=== PATIENT | male | born 1940 | race Hispanic/Latino ===

== ENCOUNTER 2018-11-03 11:36 | Emergency (ER) | payer OTHER ==
[2018-11-03 12:27] LABS: APPEARANCE,URINE TURBID (CLEAR); BILIRUBIN,URINE NEGATIVE (NEGATIVE); GLUCOSE, URINE (UA) 100 mg/dL (NEGATIVE); KETONES,URINE NEGATIVE (NEGATIVE); LEUKOCYTE ESTERASE ,URINE TRACE (NEGATIVE); NITRATE,URINE NEGATIVE (NEGATIVE); OCCULT BLOOD,URINE LARGE (NEGATIVE); PH,URINE 6.5 (5.0-8.0); PROTEIN,URINE >=300 mg/dL (NEGATIVE); UROBILINOGEN,URINE 0.2 mg/dL (0.2-1.0)
[2018-11-03 12:35] LABS: COLOR,URINE RED (YELLOW)
[2018-11-03 12:37] LABS: BACTERIA,URINE Rare /HPF (None Seen); RBC,URINE TNTC /HPF (0-1)
[2018-11-03 12:38] LABS: SQUAMOUS EPITHELIAL CELL,UR None Seen /HPF (0-2)
[2018-11-03 12:41] LABS: BASOPHILS % (AUTO) 0.3 % (0.0-5.0); EOSINOPHILS % (AUTO) 1.4 % (0.0-8.0); HEMATOCRIT 37.5 % (42-54); LYMPHOCYTES % (AUTO) 15.6 % (21.0-51.0); MEAN CORPUSCULAR HEMOGLOBIN 28.5 pg (27.0-33.0); MEAN CORPUSCULAR VOLUME 86.2 fL (79-99); MONOCYTES % (AUTO) 10.5 % (3.0-13.0); NEUTROPHILS % (AUTO) 72.2 % (40.0-77.0); PLATELET COUNT (AUTO) 181 K/uL (130-400); RED BLOOD CELL COUNT(AUTO) 4.35 MIL/uL (4.50-6.20); RED CELL DISTRIBUTION WIDTH 13.3 % (11.0-15.5); WHITE BLOOD COUNT (AUTO) 6.2 K/uL (4.8-10.8)
[2018-11-03 12:50] LABS: CREATININE 0.9 mg/dL (0.5-1.5); POTASSIUM 3.7 mmol/L (3.5-5.1)
[2018-11-03 12:57] LABS: ALBUMIN 3.5 g/dL (3.5-5.0); BILIRUBIN,TOTAL 0.4 mg/dL (0.2-1.0); TOTAL PROTEIN, SERUM 6.6 g/dL (6.0-8.3)
[2018-11-03] MEDS ORDERED: SULFAMETHOX-TMP DS 800/160 TAB ONE (13:54)
== END 2018-11-03 13:59 | disposition home or self-care (01) ==
LOC: EDH 11:36
DX: N39.0 Urinary tract infection, site not specified (principal); I25.10 Atherosclerotic heart disease of native coronary artery without angina pectoris; I10 Essential (primary) hypertension; Z90.49 Acquired absence of other specified parts of digestive tract; Z87.891 Personal history of nicotine dependence
CPT/HCPCS: 36415; 80053; 81001; 85025

== ENCOUNTER 2019-03-05 07:10 | Day surgery (SDC) | payer OTHER ==
[2019-03-01 15:21] VITALS: BP 145/58
[2019-03-01 15:27] LABS: BASOPHILS % (AUTO) 0.3 % (0.0-5.0); EOSINOPHILS % (AUTO) 2.2 % (0.0-8.0); HEMATOCRIT 37.2 % (42-54); LYMPHOCYTES % (AUTO) 25.9 % (21.0-51.0); MEAN CORPUSCULAR HEMOGLOBIN 26.5 pg (27.0-33.0); MEAN CORPUSCULAR HGB CONC 32.5 g/dL (32.0-36.0); MEAN CORPUSCULAR VOLUME 81.6 fL (79-99); MONOCYTES % (AUTO) 11.9 % (3.0-13.0); NEUTROPHILS % (AUTO) 59.7 % (40.0-77.0); PLATELET COUNT (AUTO) 209 K/uL (130-400); RED BLOOD CELL COUNT(AUTO) 4.56 MIL/uL (4.50-6.20); RED CELL DISTRIBUTION WIDTH 14.9 % (11.0-15.5); WHITE BLOOD COUNT (AUTO) 6.5 K/uL (4.8-10.8)
[2019-03-01 15:32] LABS: POTASSIUM 4.4 mmol/L (3.5-5.1)
[2019-03-05] VITALS (13 sets, daily range): BP systolic 145–182; BP diastolic 57–96
[~2019-03-05] VITALS: Ht 175.3 cm; Wt 92.9 kg
[~2019-03-05 07:10] MED LIST: ATOR40TA71 PO; CITA40TA6 PO; DONE5TAB33 PO; FLUTICASONE PROP NASAL; LISI2.5T2 PO; METF-527 PO
[2019-03-05] MEDS ORDERED: METOPROLOL TARTRATE 50 MG TAB PO SCH (07:44)
[2019-03-05] MEDS ORDERED: SODIUM CHLORIDE 0.9% 1000ML 1,000 ML IV SCH (08:00)
[2019-03-05] MEDS ORDERED: PROPOFOL 10 MG/ML 20ML VIAL IV ONE (08:02)
[2019-03-05] MEDS ORDERED: LIDOCAINE PF 2% 5ML ABBOJECT ONE (08:02)
[2019-03-05] MEDS ORDERED: FENTANYL CITRATE PF 50 MCG/1 ML 2ML VIAL ONE (08:02)
--- NOTE | 2019-03-05 08:25 | NUR ---
POTENTIAL FOR INFECTION: SHAVED ABDOMEN AND LEFT LOWER GROIN AREA PER [facility].
[2019-03-05] MEDS ORDERED: METO-409 PO (08:31)
[2019-03-05] MEDS ORDERED: ROCURONIUM 10MG/1ML SYR 10 MG/ML ML ONE (08:50)
[2019-03-05] MEDS ORDERED: GLYCOPYRROLATE 1 MG/5 ML SYRINGE ONE (08:52)
[2019-03-05] MEDS ORDERED: EPHEDRINE SULFATE 50 MG/ML AMPULE ONE (08:58)
[2019-03-05] MEDS ORDERED: NEOSTIGMINE 5MG/5ML SYR IV ONE (09:09)
[2019-03-05] MEDS ORDERED: ONDANSETRON HCL 4 MG/2 ML VIAL ONE (09:39)
[2019-03-05] MEDS ORDERED: BUPIVACAINE/PF 0.25% 30ML VIAL IJ ONE (09:41)
[2019-03-05] MEDS ORDERED: HYDRALAZINE HCL 20 MG/ML VIAL ONE (10:17)
--- NOTE | 2019-03-05 11:00 | NUR ---
PT. ARRIVED AND IS STABLE WITH MINIMAL PAIN.
--- NOTE | 2019-03-05 11:41 | NUR ---
PT. V/S STABLE DRESSING DRY AND INTACT, RX GIVEN TO WITH F/U APPT., D/C INSTRUCTIONS. PT WAS WHEEL OUT BY WHEEL CHAIR TO PVT CAR
== END 2019-03-05 11:44 ==
LOC: DAH 07:10
PROVIDERS: ATTEND Surgery
DX: K40.90 Unilateral inguinal hernia, without obstruction or gangrene, not specified as recurrent (principal); I11.0 Hypertensive heart disease with heart failure; I50.9 Heart failure, unspecified; F32.9 Major depressive disorder, single episode, unspecified; E11.9 Type 2 diabetes mellitus without complications; E78.5 Hyperlipidemia, unspecified; F10.21 Alcohol dependence, in remission; G47.30 Sleep apnea, unspecified; E66.9 Obesity, unspecified; Z98.890 Other specified postprocedural states; Z68.30 Body mass index [BMI] 30.0-30.9, adult; Z90.49 Acquired absence of other specified parts of digestive tract; Z79.84 Long term (current) use of oral hypoglycemic drugs; Z79.899 Other long term (current) drug therapy; Z83.3 Family history of diabetes mellitus; Z82.49 Family history of ischemic heart disease and other diseases of the circulatory system; Z82.3 Family history of stroke
CPT/HCPCS: 36415; 49505; 80048; 82948 ×2; 85025; A4215; A4221; A4222; A4223; A4450; A4452; A4663; A4930; C1729; C1781; J0360; J2001; J2405; J2704; J2710; J3010; J3490 ×3; J7030

== ENCOUNTER → 2019-08-07 | Outpatient (CLI) | payer OTHER ==
[~2019-08-07] MED LIST changes: -FLUTICASONE PROP NASAL; +METO-409 PO
== END | disposition home or self-care (01) ==
LOC: SHCH 12:39
PROVIDERS: ATTEND Internal Medicine Cardiovascular Disease
DX: I08.8 Other rheumatic multiple valve diseases (principal); I10 Essential (primary) hypertension; I50.22 Chronic systolic (congestive) heart failure
CPT/HCPCS: 93306; 93356

== ENCOUNTER → 2020-11-19 | Outpatient (CLI) | payer OTHER | END | disposition home or self-care (01) | LOC: SHCH 14:59 | PROVIDERS: ATTEND Internal Medicine Cardiovascular Disease | DX: I50.22 Chronic systolic (congestive) heart failure (principal) | CPT/HCPCS: 93306; 93356 ==

== ENCOUNTER 2020-12-09 06:38 | Day surgery (SDC) | payer OTHER ==
[2020-12-07 10:42] LABS: BASOPHILS % (AUTO) 0.5 % (0.0-5.0); EOSINOPHILS % (AUTO) 2.3 % (0.0-8.0); LYMPHOCYTES % (AUTO) 15.3 % (21.0-51.0); MEAN CORPUSCULAR HEMOGLOBIN 28.1 pg (27.0-33.0); MEAN CORPUSCULAR HGB CONC 32.4 g/dL (32.0-36.0); MONOCYTES % (AUTO) 10.9 % (3.0-13.0); NEUTROPHILS % (AUTO) 70.7 % (40.0-77.0); PLATELET COUNT (AUTO) 216 K/uL (130-400); RED BLOOD CELL COUNT(AUTO) 4.37 MIL/uL (4.50-6.20); RED CELL DISTRIBUTION WIDTH 13.6 % (11.0-15.5); WHITE BLOOD COUNT (AUTO) 6.2 K/uL (4.8-10.8)
[2020-12-07 10:45] LABS: APPEARANCE,URINE Clear (CLEAR); BILIRUBIN,URINE Negative (NEGATIVE); COLOR,URINE Yellow (YELLOW); GLUCOSE, URINE (UA) Negative (NEGATIVE); KETONES,URINE Negative (NEGATIVE); LEUKOCYTE ESTERASE ,URINE Trace (NEGATIVE); NITRATE,URINE Negative (NEGATIVE); OCCULT BLOOD,URINE Negative (NEGATIVE); PROTEIN,URINE Negative (NEGATIVE); UROBILINOGEN,URINE 0.2 mg/dL (0.2-1.0)
[2020-12-07 10:56] LABS: CREATININE 1.2 mg/dL (0.5-1.5); POTASSIUM 5.4 mmol/L (3.5-5.1)
[2020-12-07 11:18] LABS: BACTERIA,URINE Rare /HPF (None Seen); RBC,URINE 0-1 /HPF (0-1); SQUAMOUS EPITHELIAL CELL,UR Rare /HPF (0-2); WBC,URINE 0-1 /HPF (0-1)
[2020-12-07 11:52] LABS: INR 1.04 (0.85-1.15); PROTHROMBIN TIME 11.3 SEC (9.6-11.6)
[2020-12-07 11:53] LABS: PARTIAL THROMBOPLASTIN TIME 26.9 SEC (26.3-35.5)
[~2020-12-09] VITALS: Ht 177.8 cm; Wt 86.2 kg
[2020-12-09] VITALS (12 sets, daily range): BP systolic 110–126; BP diastolic 55–68
[~2020-12-09 06:38] MED LIST changes: +ASPI-1443 PO; +CARV6.25 PO; +DONE10TA43 PO; -DONE5TAB33 PO; +FAMO40TA7 PO; +LISI10TA24 PO; -LISI2.5T2 PO; -METO-409 PO; +MULT-1367 PO; +NAPR500T6 PO; +OMEP40CA21 PO; +SPIR25TA6 PO; +TORS10TA18 PO
[2020-12-09] MEDS ORDERED: SODIUM CHLORIDE 0.9% 1000ML 1,000 ML IV SCH ×2 (08:00→11:30)
[2020-12-09] MEDS ORDERED: SODIUM BICARB 50MEQ 50ML VIAL 50 ML ONE (08:24)
[2020-12-09] MEDS ORDERED: MIDAZOLAM HCL 1 MG/ML 2ML VIAL ONE (08:25)
[2020-12-09] MEDS ORDERED: HEPARIN SODIUM 1000UNIT/ML 10ML VIAL ONE (08:25)
[2020-12-09] MEDS ORDERED: FENTANYL CITRATE PF 50 MCG/1 ML 2ML VIAL ONE (08:25)
[2020-12-09] MEDS ORDERED: IOHEXOL 350 MG/ML 100ML INFUS..BTL IV ONE ×2 (08:25→10:55)
[2020-12-09] MEDS ORDERED: BIVALIRUDIN 250 MG/VIAL IV ONE (08:25)
[2020-12-09] MEDS ORDERED: NITROGLYCERIN 2 MG/VIAL VIAL IV ONE (08:25)
[2020-12-09] MEDS ORDERED: NICARDIPINE HCL 25 MG/10 ML ML IV ONE (08:25)
[2020-12-09] MEDS ORDERED: IOHEXOL-350 50ML VIAL IV ONE (08:25)
[2020-12-09] MEDS ORDERED: LIDOCAINE HCL 400MG/20ML VIAL ONE (08:26)
[2020-12-09] MEDS ORDERED: DEXTROSE 50%-WATER 50 ML DISP.SYRIN IV PRN (11:30)
[2020-12-09] MEDS ORDERED: GLUCAGON 1MG KIT 1 MG ML IM PRN (11:30)
== END 2020-12-09 17:40 | disposition home or self-care (01) ==
LOC: DAH 06:38
PROVIDERS: ATTEND Internal Medicine Cardiovascular Disease
DX: I25.119 Atherosclerotic heart disease of native coronary artery with unspecified angina pectoris (principal); I35.1 Nonrheumatic aortic (valve) insufficiency; I11.0 Hypertensive heart disease with heart failure; I50.43 Acute on chronic combined systolic (congestive) and diastolic (congestive) heart failure; E11.9 Type 2 diabetes mellitus without complications; E78.5 Hyperlipidemia, unspecified; F03.90 Unspecified dementia, unspecified severity, without behavioral disturbance, psychotic disturbance, mood disturbance, and anxiety; F41.9 Anxiety disorder, unspecified; F32.9 Major depressive disorder, single episode, unspecified; Z90.49 Acquired absence of other specified parts of digestive tract; Z98.890 Other specified postprocedural states; Z83.3 Family history of diabetes mellitus; Z82.49 Family history of ischemic heart disease and other diseases of the circulatory system; Z79.82 Long term (current) use of aspirin; Z79.84 Long term (current) use of oral hypoglycemic drugs; Z79.01 Long term (current) use of anticoagulants
CPT/HCPCS: 36415 ×2; 71045; 80048; 81001; 82948 ×2; 84132; 85025; 85610; 85730; 93005; 93458; 93567; A4215; A4216; A4221; A4222; A4223 ×3; A4606; A4663; C1760; C1894 ×2; J1644; J2250; J3010; J3490 ×3; J7030; Q9965 ×3; Q9967 ×3; 99156; 99157; J0583

== ENCOUNTER → 2021-12-17 | Outpatient (CLI) | payer OTHER ==
[~2021-12-17] MED LIST changes: -ASPI-1443 PO; +CITA-108 PO; -CITA40TA6 PO; +ISOS20TA85 PO; -MULT-1367 PO; +MULT-30 PO; -NAPR500T6 PO; +NITR0.4T50 SL
[2021-12-17 12:35] LABS: CREATININE 1.1 mg/dL (0.5-1.5); MAGNESIUM 1.5 mg/dL (1.80-2.40)
== END | disposition home or self-care (01) ==
LOC: LAB 09:25
PROVIDERS: ATTEND Internal Medicine Cardiovascular Disease
DX: I50.22 Chronic systolic (congestive) heart failure (principal); E11.59 Type 2 diabetes mellitus with other circulatory complications; I63.9 Cerebral infarction, unspecified; I95.2 Hypotension due to drugs
CPT/HCPCS: 36415; 80048; 83735; 83880

== ENCOUNTER 2022-02-17 23:01 | Observation (INO) | payer OTHER ==
[~2022-02-17] VITALS: Ht 177.8 cm; Wt 82.2 kg
[2022-02-17 23:42] LABS: BASOPHILS % (AUTO) 0.6 % (0.0-5.0); EOSINOPHILS % (AUTO) 3.8 % (0.0-8.0); HEMATOCRIT 38.8 % (42-54); LYMPHOCYTES % (AUTO) 18.3 % (21.0-51.0); MEAN CORPUSCULAR HEMOGLOBIN 26.7 pg (27.0-33.0); MEAN CORPUSCULAR HGB CONC 31.7 g/dL (32.0-36.0); MEAN CORPUSCULAR VOLUME 84.3 fL (79-99); MONOCYTES % (AUTO) 15.4 % (3.0-13.0); NEUTROPHILS % (AUTO) 61.6 % (40.0-77.0); PLATELET COUNT (AUTO) 264 K/uL (130-400); RED CELL DISTRIBUTION WIDTH 13.6 % (11.0-15.5); WHITE BLOOD COUNT (AUTO) 6.4 K/uL (4.8-10.8)
[2022-02-17 23:55] LABS: INR 0.99 (0.85-1.15); PROTHROMBIN TIME 10.8 SEC (9.6-11.6)
[2022-02-17 23:56] LABS: ALBUMIN 3.6 g/dL (3.5-5.0); CREATININE 1.6 mg/dL (0.5-1.5); MAGNESIUM 2.1 mg/dL (1.80-2.40); PARTIAL THROMBOPLASTIN TIME 24.8 SEC (26.3-35.5); POTASSIUM 5.4 mmol/L (3.5-5.1); TOTAL PROTEIN, SERUM 6.6 g/dL (6.0-8.3)
[2022-02-18 00:10] LABS: B-TYPE NATRIURETIC PEPTIDE 152 pg/mL (0-100)
[2022-02-18 02:20] LABS: CRP QUANTITATIVE < 2.00 mg/L (0.00-9.0)
[2022-02-18 06:30] LABS: BASOPHILS % (AUTO) 0.6 % (0.0-5.0); EOSINOPHILS % (AUTO) 3.7 % (0.0-8.0); HEMATOCRIT 36.2 % (42-54); MEAN CORPUSCULAR HEMOGLOBIN 26.9 pg (27.0-33.0); MEAN CORPUSCULAR VOLUME 83.8 fL (79-99); MONOCYTES % (AUTO) 14.3 % (3.0-13.0); PLATELET COUNT (AUTO) 238 K/uL (130-400); RED BLOOD CELL COUNT(AUTO) 4.32 MIL/uL (4.50-6.20); RED CELL DISTRIBUTION WIDTH 13.7 % (11.0-15.5); WHITE BLOOD COUNT (AUTO) 5.4 K/uL (4.8-10.8)
[2022-02-18 06:57] LABS: ALBUMIN 3.1 g/dL (3.5-5.0); CREATININE 1.4 mg/dL (0.5-1.5); POTASSIUM 4.4 mmol/L (3.5-5.1); THYROID STIMULATING HORMONE 1.25 uIU/mL (0.36-3.74)
[2022-02-18] MEDS ORDERED: CLOP75TA32 PO (07:34)
[2022-02-18] MEDS ORDERED: CITA-108 PO (07:34)
[2022-02-18] MEDS ORDERED: TORS10TA18 PO (07:34)
[2022-02-18] MEDS ORDERED: ASPRIN PO (07:34)
[2022-02-18] MEDS ORDERED: OMEP20CA12 PO (07:34)
[2022-02-18] MEDS ORDERED: METF-446 PO (07:34)
[2022-02-18] MEDS ORDERED: DONE10TA43 PO (07:34)
[2022-02-18] MEDS ORDERED: QUET25TA36 PO (07:34)
[2022-02-18] MEDS ORDERED: EMPA25TA PO (07:34)
[2022-02-18] MEDS ORDERED: CARV3.12 PO (07:34)
[2022-02-18] MEDS ORDERED: FAMO40TA7 PO (07:34)
[2022-02-18 08:55] VITALS: BP 135/98
[2022-02-18] MEDS ORDERED: METOPROLOL TARTRATE 25 MG TAB PO SCH (09:00)
[2022-02-18 12:00] VITALS: BP 125/65
[2022-02-18 15:46] VITALS: BP 107/65
[2022-02-18] MEDS ORDERED: TORSEMIDE 20 MG TAB PO SCH (16:30)
[2022-02-18] MEDS ORDERED: PANTOPRAZOLE 40 MG TAB DR PO SCH (16:30)
[2022-02-18] MEDS ORDERED: **HM** JARDIANCE 25MG PO SCH (16:30)
[2022-02-18] MEDS ORDERED: CLOPIDOGREL 75MG TAB PO SCH (16:30)
[2022-02-18] MEDS ORDERED: ASPIRIN 325MG TAB PO SCH (16:30)
[2022-02-18] MEDS ORDERED: METFORMIN HCL 500 MG TABLET PO SCH (17:00)
[2022-02-18] MEDS ORDERED: CARVEDILOL 3.125 MG TABLET PO SCH (21:00)
[2022-02-19] MEDS ORDERED: QUETIAPINE FUMARATE 25 MG TAB PO SCH (09:00)
[2022-02-19] MEDS ORDERED: CITALOPRAM 20 MG TABLET PO SCH (09:00)
[2022-02-19] MEDS ORDERED: DONEPEZIL HCL 5 MG TAB PO SCH (09:00)
[2022-02-19] MEDS ORDERED: FAMOTIDINE 20MG TAB PO SCH (09:00)
== END 2022-02-18 18:03 | disposition home or self-care (01) ==
LOC: EDH 23:01 → EDHIP 02-18 05:13 → 4BH 02-18 08:43
PROVIDERS: ADMIT Internal Medicine; ATTEND Internal Medicine
DX: I48.91 Unspecified atrial fibrillation (principal); Z20.822 Contact with and (suspected) exposure to COVID-19; I11.0 Hypertensive heart disease with heart failure; I50.42 Chronic combined systolic (congestive) and diastolic (congestive) heart failure; I25.10 Atherosclerotic heart disease of native coronary artery without angina pectoris; E78.5 Hyperlipidemia, unspecified; E78.00 Pure hypercholesterolemia, unspecified; R79.89 Other specified abnormal findings of blood chemistry; E11.9 Type 2 diabetes mellitus without complications; F03.90 Unspecified dementia, unspecified severity, without behavioral disturbance, psychotic disturbance, mood disturbance, and anxiety; Z86.73 Personal history of transient ischemic attack (TIA), and cerebral infarction without residual deficits; Z95.5 Presence of coronary angioplasty implant and graft; Z79.899 Other long term (current) drug therapy
CPT/HCPCS: 99285; 83735; 84484 ×3; 80053 ×2; 83880; 85025 ×2; 85610; 85730; 36415 ×2; 71045; 93005 ×2; 84443; 82550 ×2; 83874 ×2; 82948 ×2; 83605; 86140; 87635; 93306; G0378 ×12; C9803

== ENCOUNTER → 2022-04-29 | Outpatient (CLI) | payer OTHER ==
[~2022-04-29] MED LIST changes: +ASPRIN PO; +CARV3.12 PO; +CLOP75TA32 PO; +EMPA25TA PO; +METF-446 PO; +OMEP20CA12 PO; +QUET25TA36 PO
[2022-04-29 13:28] LABS: CREATININE 1.2 mg/dL (0.5-1.5); MAGNESIUM 1.9 mg/dL (1.80-2.40)
== END | disposition home or self-care (01) ==
LOC: LAB 10:06
PROVIDERS: ATTEND Internal Medicine Cardiovascular Disease
DX: I11.0 Hypertensive heart disease with heart failure (principal); I50.22 Chronic systolic (congestive) heart failure
CPT/HCPCS: 36415; 80048; 83735

== ENCOUNTER → 2022-05-09 | Outpatient (CLI) | payer OTHER | END | disposition home or self-care (01) | LOC: RAH 17:23 | PROVIDERS: ATTEND Internal Medicine Cardiovascular Disease | DX: I25.10 Atherosclerotic heart disease of native coronary artery without angina pectoris (principal); I50.42 Chronic combined systolic (congestive) and diastolic (congestive) heart failure; I50.9 Heart failure, unspecified | CPT/HCPCS: 71250 ==

== ENCOUNTER 2022-08-28 14:05 | Emergency (ER) | payer OTHER ==
[~2022-08-28] VITALS: Ht 167.6 cm; Wt 86.2 kg
[2022-08-28] MEDS ORDERED: AMIODARONE 150MG VIAL IV STA (14:08)
[2022-08-28] MEDS ORDERED: AMIODARONE 150MG VIAL ONE (14:10)
[2022-08-28] MEDS ORDERED: DILTIAZEM 25MG INJ IVP ONE (14:30)
[2022-08-28 14:32] LABS: BASOPHILS % (AUTO) 0.3 % (0.0-5.0); EOSINOPHILS % (AUTO) 0.8 % (0.0-8.0); HEMATOCRIT 46.4 % (42-54); LYMPHOCYTES % (AUTO) 11.7 % (21.0-51.0); MEAN CORPUSCULAR HEMOGLOBIN 25.8 pg (27.0-33.0); MEAN CORPUSCULAR HGB CONC 31.5 g/dL (32.0-36.0); MEAN CORPUSCULAR VOLUME 82.1 fL (79-99); MONOCYTES % (AUTO) 8.4 % (3.0-13.0); NEUTROPHILS % (AUTO) 78.5 % (40.0-77.0); PLATELET COUNT (AUTO) 286 K/uL (130-400); RED BLOOD CELL COUNT(AUTO) 5.65 MIL/uL (4.50-6.20); RED CELL DISTRIBUTION WIDTH 18.1 % (11.0-15.5)
[2022-08-28 14:45] LABS: CREATININE 1.9 mg/dL (0.5-1.5); POTASSIUM 4.7 mmol/L (3.5-5.1)
[2022-08-28 14:48] LABS: INR 1.03 (0.85-1.15); PROTHROMBIN TIME 11.2 SEC (9.6-11.6)
[2022-08-28 14:49] LABS: ALBUMIN 3.6 g/dL (3.5-5.0); MAGNESIUM 1.8 mg/dL (1.80-2.40); PARTIAL THROMBOPLASTIN TIME 27.3 SEC (26.3-35.5); TOTAL PROTEIN, SERUM 6.9 g/dL (6.0-8.3)
[2022-08-28 15:15] LABS: B-TYPE NATRIURETIC PEPTIDE 342 pg/mL (0-100)
[2022-08-28 15:45] VITALS: BP 118/53
== END 2022-08-28 15:50 | disposition home or self-care (01) ==
LOC: EDH 14:05
DX: I48.91 Unspecified atrial fibrillation (principal); J44.9 Chronic obstructive pulmonary disease, unspecified; Z95.5 Presence of coronary angioplasty implant and graft; Z79.899 Other long term (current) drug therapy; Z79.84 Long term (current) use of oral hypoglycemic drugs; Z79.82 Long term (current) use of aspirin
CPT/HCPCS: 99291; 96374; 96375; 83735; 84484; 80053; 83880; 85025; 85610; 85730; 36415; 71045; 93005 ×2; J3490; J0282

== ENCOUNTER 2022-11-07 14:11 | Emergency (ER) | payer OTHER ==
[~2022-11-07] VITALS: Ht 170.2 cm; Wt 80.7 kg
[~2022-11-07 14:11] MED LIST changes: +AMIO200T68 PO; +APIX5TAB PO; -CARV3.12 PO; -CARV6.25 PO; -CLOP75TA32 PO; +HYDR-3421 PO; -ISOS20TA85 PO; +ISOS30TA92 PO; -METF-527 PO; +METO-408 PO; -OMEP40CA21 PO; -SPIR25TA6 PO
[2022-11-07] MEDS ORDERED: IPRATROPIUM/ALBUTEROL SULFATE 3 ML SOLUTION IH ONE (15:00)
[2022-11-07 15:49] LABS: APPEARANCE,URINE TURBID (CLEAR); BILIRUBIN,URINE NEGATIVE (NEGATIVE); COLOR,URINE YELLOW (YELLOW); GLUCOSE, URINE (UA) >=1000 mg/dL (NEGATIVE); KETONES,URINE NEGATIVE (NEGATIVE); LEUKOCYTE ESTERASE ,URINE 500 Leu/uL (NEGATIVE); NITRATE,URINE NEGATIVE (NEGATIVE); OCCULT BLOOD,URINE LARGE (NEGATIVE); PROTEIN,URINE 30 mg/dL (NEGATIVE); UROBILINOGEN,URINE 0.2 mg/dL (0.2-1.0)
[2022-11-07 15:54] LABS: BACTERIA,URINE FEW /HPF (None Seen); MUCUS,URINE RARE LPF (None Seen); RBC,URINE 26-50 /HPF (0-1); SQUAMOUS EPITHELIAL CELL,UR RARE /HPF (0-2); WBC,URINE 51-100 /HPF (0-1); YEAST,URINE BUDDING FEW /HPF (None Seen)
[2022-11-07 16:00] LABS: BASOPHILS % (AUTO) 0.4 % (0.0-5.0); EOSINOPHILS % (AUTO) 0.9 % (0.0-8.0); HEMATOCRIT 44.7 % (42-54); LYMPHOCYTES % (AUTO) 12.4 % (21.0-51.0); MEAN CORPUSCULAR HEMOGLOBIN 27.3 pg (27.0-33.0); MEAN CORPUSCULAR HGB CONC 31.5 g/dL (32.0-36.0); MEAN CORPUSCULAR VOLUME 86.5 fL (79-99); MONOCYTES % (AUTO) 13.3 % (3.0-13.0); NEUTROPHILS % (AUTO) 72.5 % (40.0-77.0); PLATELET COUNT (AUTO) 302 K/uL (130-400); RED BLOOD CELL COUNT(AUTO) 5.17 MIL/uL (4.50-6.20); RED CELL DISTRIBUTION WIDTH 17.2 % (11.0-15.5)
[2022-11-07 16:09] LABS: POTASSIUM 5.3 mmol/L (3.5-5.1)
[2022-11-07 16:13] LABS: ALBUMIN 3.4 g/dL (3.5-5.0); TOTAL PROTEIN, SERUM 7.2 g/dL (6.0-8.3)
[2022-11-07] MEDS ORDERED: 0.9%NACL 1000ML 1,000 ML IV ONE (17:00)
[2022-11-07] MEDS ORDERED: CEFTRIAXONE 1G VIAL IVPB ONE (17:30)
[2022-11-07 18:20] LABS: B-TYPE NATRIURETIC PEPTIDE 342 pg/mL (0-100)
[2022-11-07] MEDS ORDERED: CEFD300C3 PO (18:40)
[2022-11-07 19:41] VITALS: BP 138/65
== END 2022-11-07 19:46 | disposition home or self-care (01) ==
LOC: EDH 14:11
DX: N39.0 Urinary tract infection, site not specified (principal); R06.02 Shortness of breath; I11.0 Hypertensive heart disease with heart failure; I50.9 Heart failure, unspecified; E78.00 Pure hypercholesterolemia, unspecified; E11.9 Type 2 diabetes mellitus without complications; Z79.899 Other long term (current) drug therapy
CPT/HCPCS: 99285; 96365; 71045; 84484; 80053; 83880; 85025; 87077; 87088; 87186; 81001; 36415; 93005; 94640; J0696

== ENCOUNTER → 2022-12-05 | Outpatient (CLI) | payer OTHER ==
[~2022-12-05] MED LIST changes: +CEFD300C3 PO
[2022-12-05 12:25] LABS: BASOPHILS % (AUTO) 0.6 % (0.0-5.0); EOSINOPHILS % (AUTO) 3.2 % (0.0-8.0); HEMATOCRIT 42.4 % (42-54); LYMPHOCYTES % (AUTO) 18.6 % (21.0-51.0); MEAN CORPUSCULAR HEMOGLOBIN 27.6 pg (27.0-33.0); MEAN CORPUSCULAR HGB CONC 30.4 g/dL (32.0-36.0); MEAN CORPUSCULAR VOLUME 90.8 fL (79-99); MONOCYTES % (AUTO) 12.3 % (3.0-13.0); PLATELET COUNT (AUTO) 236 K/uL (130-400); RED BLOOD CELL COUNT(AUTO) 4.67 MIL/uL (4.50-6.20); RED CELL DISTRIBUTION WIDTH 16.2 % (11.0-15.5); WHITE BLOOD COUNT (AUTO) 7.2 K/uL (4.8-10.8)
[2022-12-05 13:09] LABS: ALBUMIN 3.8 g/dL (3.5-5.0); CREATININE 1.6 mg/dL (0.5-1.5); POTASSIUM 4.5 mmol/L (3.5-5.1); TOTAL PROTEIN, SERUM 6.9 g/dL (6.0-8.3)
== END | disposition home or self-care (01) ==
LOC: LAB 10:32
PROVIDERS: ATTEND Internal Medicine Cardiovascular Disease
DX: I11.0 Hypertensive heart disease with heart failure (principal); I50.22 Chronic systolic (congestive) heart failure; I25.10 Atherosclerotic heart disease of native coronary artery without angina pectoris; E78.5 Hyperlipidemia, unspecified
CPT/HCPCS: 36415; 80053; 80061; 85025

== ENCOUNTER → 2022-12-26 | Outpatient (CLI) | payer OTHER ==
[~2022-12-26] MED LIST changes: +AEC81 PO; +CYAN1TAB44 PO; +FERR-82 PO; +ISOS30TA11 PO; +LISI2.5T13 PO; +MULT-1203 PO
[2022-12-26 16:33] LABS: CREATININE 1.4 mg/dL (0.5-1.5); MAGNESIUM 1.7 mg/dL (1.80-2.40); POTASSIUM 4.7 mmol/L (3.5-5.1)
== END | disposition home or self-care (01) ==
LOC: LAB 13:34
PROVIDERS: ATTEND Internal Medicine Cardiovascular Disease
DX: I50.22 Chronic systolic (congestive) heart failure (principal); R00.1 Bradycardia, unspecified; I48.0 Paroxysmal atrial fibrillation; D68.59 Other primary thrombophilia
CPT/HCPCS: 36415; 80048; 82542; 83735

== ENCOUNTER 2022-12-28 15:20 | Observation (INO) | payer OTHER ==
[~2022-12-28] VITALS: Ht 180.3 cm; Wt 76.7 kg
[~2022-12-28 15:20] MED LIST changes: -AEC81 PO; -CYAN1TAB44 PO; -FERR-82 PO; -ISOS30TA11 PO; -LISI2.5T13 PO; -MULT-1203 PO
[2022-12-28 15:46] LABS: HEMATOCRIT 45.5 % (42-54); LYMPHOCYTES % (AUTO) 12.9 % (21.0-51.0); MEAN CORPUSCULAR HEMOGLOBIN 27.7 pg (27.0-33.0); MEAN CORPUSCULAR HGB CONC 32.1 g/dL (32.0-36.0); MEAN CORPUSCULAR VOLUME 86.2 fL (79-99); NEUTROPHILS % (AUTO) 75.1 % (40.0-77.0); PLATELET COUNT (AUTO) 260 K/uL (130-400); RED BLOOD CELL COUNT(AUTO) 5.28 MIL/uL (4.50-6.20); RED CELL DISTRIBUTION WIDTH 15.1 % (11.0-15.5); WHITE BLOOD COUNT (AUTO) 9.2 K/uL (4.8-10.8)
[2022-12-28 15:47] LABS: BASOPHILS % (AUTO) 0.4 % (0.0-5.0); EOSINOPHILS % (AUTO) 0.4 % (0.0-8.0)
[2022-12-28 15:58] LABS: CREATININE 1.5 mg/dL (0.5-1.5); POTASSIUM 3.8 mmol/L (3.5-5.1)
[2022-12-28 16:03] LABS: ALBUMIN 3.2 g/dL (3.5-5.0); TOTAL PROTEIN, SERUM 6.4 g/dL (6.0-8.3)
[2022-12-28] MEDS ORDERED: 0.9% NACL 500ML IV.SOLN 500 ML IV ONE (17:30)
[2022-12-28] MEDS ORDERED: MAGNESIUM 2GM PREMIX 50ML 50 ML IV ONE (18:00)
[2022-12-28] MEDS ORDERED: POTASSIUM CHLORIDE 20MEQ/100ML 100 ML IV PRN (18:30)
[2022-12-28] MEDS ORDERED: KCL 20 MEQ ERTAB PO PRN (18:30)
[2022-12-28] MEDS ORDERED: POTASSIUM CHLORIDE 10% ELIXIR 20 MEQ/15 ML UDCUP PO PRN (18:30)
[2022-12-28] MEDS ORDERED: EMPA25TA PO (21:29)
[2022-12-28] MEDS ORDERED: ATOR40TA71 PO (21:29)
[2022-12-28] MEDS ORDERED: METF-446 PO (21:29)
[2022-12-28] MEDS ORDERED: CYAN1TAB44 PO (21:29)
[2022-12-28] MEDS ORDERED: FAMO40TA7 PO (21:29)
[2022-12-28] MEDS ORDERED: FERR-82 PO (21:29)
[2022-12-28] MEDS ORDERED: APIX5TAB PO (21:29)
[2022-12-28] MEDS ORDERED: AMIO200T68 PO (21:29)
[2022-12-28] MEDS ORDERED: MULT-1203 PO (21:29)
[2022-12-28] MEDS ORDERED: LISI2.5T13 PO (21:29)
[2022-12-28] MEDS ORDERED: AEC81 PO (21:29)
[2022-12-28] MEDS ORDERED: ISOS30TA11 PO (21:29)
[2022-12-28] MEDS ORDERED: TORS10TA18 PO (21:29)
[2022-12-28] MEDS ORDERED: DONE10TA43 PO (21:29)
[2022-12-29] VITALS (7 sets, daily range): BP systolic 96–142; BP diastolic 54–84
[2022-12-29 03:59] LABS: BASOPHILS % (AUTO) 0.6 % (0.0-5.0); EOSINOPHILS % (AUTO) 1.2 % (0.0-8.0); HEMATOCRIT 40.5 % (42-54); LYMPHOCYTES % (AUTO) 21.5 % (21.0-51.0); MEAN CORPUSCULAR HEMOGLOBIN 27.8 pg (27.0-33.0); MEAN CORPUSCULAR HGB CONC 31.6 g/dL (32.0-36.0); MONOCYTES % (AUTO) 14.9 % (3.0-13.0); NEUTROPHILS % (AUTO) 61.4 % (40.0-77.0); PLATELET COUNT (AUTO) 219 K/uL (130-400); RED CELL DISTRIBUTION WIDTH 15.3 % (11.0-15.5); WHITE BLOOD COUNT (AUTO) 7.3 K/uL (4.8-10.8)
[2022-12-29 04:13] LABS: ALBUMIN 2.8 g/dL (3.5-5.0); CREATININE 1.4 mg/dL (0.5-1.5); POTASSIUM 4.4 mmol/L (3.5-5.1); TOTAL PROTEIN, SERUM 5.7 g/dL (6.0-8.3)
[2022-12-29] MEDS: MULTIVITAMIN TABLET PO SCH (08:49)
[2022-12-29] MEDS: FAMOTIDINE 20MG TAB PO SCH (08:49)
[2022-12-29] MEDS: METFORMIN HCL 500 MG TABLET PO SCH ×2 (08:50→16:57)
[2022-12-29] MEDS: TORSEMIDE 20 MG TAB PO SCH (08:50)
[2022-12-29] MEDS: APIXABAN 5 MG TABLET PO SCH ×2 (08:50→20:17)
[2022-12-29] MEDS: ASPIRIN 81 MG EC TAB PO SCH (08:50)
[2022-12-29] MEDS: LISINOPRIL 2.5 MG TABLET PO SCH (08:51)
[2022-12-29] MEDS: FERROUS SULFATE 325 MG TABLET.DR PO SCH (08:51)
[2022-12-29] MEDS: EMPAGLIFLOZIN 25MG TABLET PO SCH (08:51)
[2022-12-29] MEDS ORDERED: NON-FORMULARY MEDICATION 1 EACH (Ferrous Sulfate (Iron) 325 MG) PO SCH (09:00)
[2022-12-29] MEDS ORDERED: NON-FORMULARY MEDICATION 1 EACH (Multivitamin (Multi Vitamin Daily) 1 EACH) PO SCH (09:00)
[2022-12-29] MEDS ORDERED: NON-FORMULARY MEDICATION 1 EACH (Torsemide 10 MG) PO SCH (09:00)
[2022-12-29] MEDS ORDERED: EMPAGLIFLOZIN 25MG TABLET PO SCH (09:00)
[2022-12-29] MEDS: FOLIC ACID PO SCH (09:00)
[2022-12-29] MEDS ORDERED: NON-FORMULARY MEDICATION 1 EACH (Famotidine 40 MG) PO SCH (09:00)
[2022-12-29] MEDS ORDERED: AMIODARONE 200 MG TABLET PO SCH ×3 (09:00→18:00)
[2022-12-29] MEDS: CYANOCOBALAMIN PO SCH (09:00)
[2022-12-29] MEDS ORDERED: APIXABAN 5 MG TABLET PO SCH (09:00)
[2022-12-29] MEDS ORDERED: NON-FORMULARY MEDICATION 1 EACH (Metformin HCl 1,000 MG) PO SCH (09:00)
[2022-12-29] MEDS ORDERED: AMIODARONE 150MG VIAL 150 MG in DEXTROSE 5%-WATER 100 ML IV SCH (18:15)
[2022-12-29] MEDS: AMIODARONE 200 MG TABLET PO SCH (20:17)
[2022-12-29] MEDS: DONEPEZIL HCL 5 MG TAB PO SCH (20:17)
[2022-12-29] MEDS: ATORVASTATIN 40 MG TABLET PO SCH (20:17)
[2022-12-29] MEDS ORDERED: ATORVASTATIN 40 MG TABLET PO SCH (21:00)
[2022-12-29] MEDS ORDERED: NON-FORMULARY MEDICATION 1 EACH (Donepezil HCl 10 MG) PO SCH (21:00)
[2022-12-30 03:28] VITALS: BP 122/55
[2022-12-30 03:37] LABS: HEMATOCRIT 38.9 % (42-54); MEAN CORPUSCULAR HGB CONC 31.4 g/dL (32.0-36.0); MEAN CORPUSCULAR VOLUME 89.4 fL (79-99); RED BLOOD CELL COUNT(AUTO) 4.35 MIL/uL (4.50-6.20); RED CELL DISTRIBUTION WIDTH 15.2 % (11.0-15.5); WHITE BLOOD COUNT (AUTO) 6.6 K/uL (4.8-10.8)
[2022-12-30 03:52] LABS: ALBUMIN 2.8 g/dL (3.5-5.0); CREATININE 1.4 mg/dL (0.5-1.5); POTASSIUM 3.8 mmol/L (3.5-5.1); TOTAL PROTEIN, SERUM 5.7 g/dL (6.0-8.3)
[2022-12-30 07:56] VITALS: BP 126/65
[2022-12-30] MEDS ORDERED: FUROSEMIDE 20MG VIAL IV ONE (08:30)
[2022-12-30] MEDS ORDERED: KCL 20 MEQ ERTAB PO ONE (08:30)
[2022-12-30] MEDS: CYANOCOBALAMIN PO SCH (09:00)
[2022-12-30] MEDS: FOLIC ACID PO SCH (09:00)
[2022-12-30] MEDS: ASPIRIN 81 MG EC TAB PO SCH (09:56)
[2022-12-30] MEDS: TORSEMIDE 20 MG TAB PO SCH (09:57)
[2022-12-30] MEDS: FAMOTIDINE 20MG TAB PO SCH (09:57)
[2022-12-30] MEDS: AMIODARONE 200 MG TABLET PO SCH ×2 (09:57→20:56)
[2022-12-30] MEDS: EMPAGLIFLOZIN 25MG TABLET PO SCH (09:57)
[2022-12-30] MEDS: LISINOPRIL 2.5 MG TABLET PO SCH (09:57)
[2022-12-30] MEDS: APIXABAN 5 MG TABLET PO SCH ×2 (09:57→20:56)
[2022-12-30] MEDS: FERROUS SULFATE 325 MG TABLET.DR PO SCH (09:58)
[2022-12-30] MEDS: MULTIVITAMIN TABLET PO SCH (10:01)
[2022-12-30] MEDS: METFORMIN HCL 500 MG TABLET PO SCH ×2 (10:01→17:13)
[2022-12-30 11:52] VITALS: BP 137/68
[2022-12-30 15:50] VITALS: BP 130/58
[2022-12-30] MEDS ORDERED: PANTOPRAZOLE 40 MG TAB DR PO SCH (19:30)
[2022-12-30 19:44] VITALS: BP 137/60
[2022-12-30] MEDS: DONEPEZIL HCL 5 MG TAB PO SCH (20:56)
[2022-12-30] MEDS: ATORVASTATIN 40 MG TABLET PO SCH (20:56)
[2022-12-31 00:34] VITALS: BP 135/64
[2022-12-31 04:51] LABS: CREATININE 1.3 mg/dL (0.5-1.5); POTASSIUM 4.1 mmol/L (3.5-5.1)
[2022-12-31 05:03] VITALS: BP 128/58
[2022-12-31 08:03] VITALS: BP 118/60
[2022-12-31] MEDS: CYANOCOBALAMIN PO SCH (09:00)
[2022-12-31] MEDS: FOLIC ACID PO SCH (09:00)
[2022-12-31] MEDS: MULTIVITAMIN TABLET PO SCH (09:03)
[2022-12-31] MEDS: AMIODARONE 200 MG TABLET PO SCH (09:03)
[2022-12-31] MEDS: TORSEMIDE 20 MG TAB PO SCH (09:03)
[2022-12-31] MEDS: FAMOTIDINE 20MG TAB PO SCH (09:03)
[2022-12-31] MEDS: EMPAGLIFLOZIN 25MG TABLET PO SCH (09:04)
[2022-12-31] MEDS: FERROUS SULFATE 325 MG TABLET.DR PO SCH (09:04)
[2022-12-31] MEDS: APIXABAN 5 MG TABLET PO SCH (09:04)
[2022-12-31] MEDS: ASPIRIN 81 MG EC TAB PO SCH (09:04)
[2022-12-31] MEDS: METFORMIN HCL 500 MG TABLET PO SCH (09:05)
[2022-12-31] MEDS: LISINOPRIL 2.5 MG TABLET PO SCH (09:06)
== END 2022-12-31 11:25 | disposition home or self-care (01) ==
LOC: EDH 15:20 → EDHIP 18:14 → 2DH 12-29 01:09
PROVIDERS: ADMIT Internal Medicine; ATTEND Internal Medicine
DX: I48.4 Atypical atrial flutter (principal); I47.1 Supraventricular tachycardia; I25.10 Atherosclerotic heart disease of native coronary artery without angina pectoris; I25.5 Ischemic cardiomyopathy; R53.1 Weakness; R79.89 Other specified abnormal findings of blood chemistry; E83.42 Hypomagnesemia; I11.0 Hypertensive heart disease with heart failure; I50.23 Acute on chronic systolic (congestive) heart failure; I48.91 Unspecified atrial fibrillation; E11.9 Type 2 diabetes mellitus without complications; E78.00 Pure hypercholesterolemia, unspecified; D64.9 Anemia, unspecified; F03.A0 Unspecified dementia, mild, without behavioral disturbance, psychotic disturbance, mood disturbance, and anxiety; Z86.73 Personal history of transient ischemic attack (TIA), and cerebral infarction without residual deficits; Z87.891 Personal history of nicotine dependence; Z95.5 Presence of coronary angioplasty implant and graft; Z79.84 Long term (current) use of oral hypoglycemic drugs; Z79.899 Other long term (current) drug therapy; Z90.49 Acquired absence of other specified parts of digestive tract; Z86.79 Personal history of other diseases of the circulatory system; Z98.890 Other specified postprocedural states
CPT/HCPCS: 96365; 99285; 83735 ×2; 84484; 80053 ×3; 83880 ×2; 85025 ×2; 36415 ×4; 71045 ×2; 93005; 96375 ×2; 85027; 93306; 93356; 80048; G0378 ×64; J3475; J7060; J0282; J1940

== ENCOUNTER → 2023-05-15 | Outpatient (CLI) | payer OTHER ==
[~2023-05-15] MED LIST changes: +AEC81 PO; -AMIO200T68 PO; -ASPRIN PO; -CEFD300C3 PO; -CITA-108 PO; +CLAR-44 PO; +CYAN1TAB44 PO; +FERR-82 PO; -HYDR-3421 PO; -ISOS30TA92 PO; -LISI10TA24 PO; +METR-172 PO; +MULT-1203 PO; -MULT-30 PO; -OMEP20CA12 PO; +PANT40TA54 PO; -QUET25TA36 PO; +TRAM50TA4 PO
[2023-05-15 12:04] LABS: BASOPHILS # (AUTO) 0.02 K/uL (0.00-0.20); BASOPHILS % (AUTO) 0.3 % (0.0-5.0); EOSINOPHILS # (AUTO) 0.11 K/uL (0.00-0.70); EOSINOPHILS % (AUTO) 1.8 % (0.0-8.0); IMMATURE GRANULOCYTE ABSOLUTE 0.01 K/uL (0-1); LYMPHOCYTES # (AUTO) 1.5 K/uL (1.0-4.8); LYMPHOCYTES % (AUTO) 24.2 % (21.0-51.0); MEAN CORPUSCULAR HEMOGLOBIN 29.9 pg (27.0-33.0); MEAN CORPUSCULAR HGB CONC 32.3 g/dL (32.0-36.0); MEAN CORPUSCULAR VOLUME 92.6 fL (79-99); MONOCYTES # (AUTO) 0.7 K/uL (0.1-1.0); MONOCYTES % (AUTO) 11.7 % (3.0-13.0); NEUTROPHILS # (AUTO) 3.9 K/uL (1.8-7.7); NEUTROPHILS % (AUTO) 61.8 % (40.0-77.0); PLATELET COUNT (AUTO) 221 K/uL (130-400); RED BLOOD CELL COUNT(AUTO) 4.75 MIL/uL (4.50-6.20); RED CELL DISTRIBUTION WIDTH 15.1 % (11.0-15.5); WHITE BLOOD COUNT (AUTO) 6.2 K/uL (4.8-10.8)
[2023-05-15 12:24] LABS: ALBUMIN 3.7 g/dL (3.5-5.0); BILIRUBIN,TOTAL 0.6 mg/dL (0.2-1.0); CREATININE 1.5 mg/dL (0.5-1.5); MAGNESIUM 1.7 mg/dL (1.80-2.40); POTASSIUM 5.2 mmol/L (3.5-5.1); TOTAL PROTEIN, SERUM 6.8 g/dL (6.0-8.3)
[2023-05-15 12:37] LABS: B-TYPE NATRIURETIC PEPTIDE 264 pg/mL (0-100)
== END | disposition home or self-care (01) ==
LOC: LAB 09:58
PROVIDERS: ATTEND Internal Medicine Cardiovascular Disease
DX: I50.22 Chronic systolic (congestive) heart failure (principal)
CPT/HCPCS: 36415; 80053; 80061; 83735; 83880; 85025

== ENCOUNTER → 2023-09-27 | Outpatient (CLI) | payer OTHER ==
[2023-09-27 12:16] LABS: BASOPHILS # (AUTO) 0.02 K/uL (0.00-0.20); BASOPHILS % (AUTO) 0.3 % (0.0-5.0); EOSINOPHILS % (AUTO) 1.6 % (0.0-8.0); HEMATOCRIT 45.8 % (42-54); IMMATURE GRANULOCYTE ABSOLUTE 0.01 K/uL (0-1); LYMPHOCYTES # (AUTO) 1.1 K/uL (1.0-4.8); LYMPHOCYTES % (AUTO) 17.3 % (21.0-51.0); MEAN CORPUSCULAR HEMOGLOBIN 29.4 pg (27.0-33.0); MEAN CORPUSCULAR HGB CONC 32.1 g/dL (32.0-36.0); MEAN CORPUSCULAR VOLUME 91.6 fL (79-99); MONOCYTES # (AUTO) 0.7 K/uL (0.1-1.0); MONOCYTES % (AUTO) 10.9 % (3.0-13.0); NEUTROPHILS # (AUTO) 4.5 K/uL (1.8-7.7); NEUTROPHILS % (AUTO) 69.7 % (40.0-77.0); PLATELET COUNT (AUTO) 219 K/uL (130-400); RED CELL DISTRIBUTION WIDTH 14.1 % (11.0-15.5); WHITE BLOOD COUNT (AUTO) 6.4 K/uL (4.8-10.8)
[2023-09-27 12:32] LABS: ALBUMIN 3.8 g/dL (3.5-5.0); BILIRUBIN,TOTAL 0.8 mg/dL (0.2-1.0); CREATININE 1.4 mg/dL (0.5-1.3); MAGNESIUM 1.9 mg/dL (1.80-2.40); POTASSIUM 4.9 mmol/L (3.5-5.1); TOTAL PROTEIN, SERUM 7.2 g/dL (6.0-8.3)
[2023-09-27 13:20] LABS: B-TYPE NATRIURETIC PEPTIDE 275 pg/mL (0-100)
== END | disposition home or self-care (01) ==
LOC: LAB 10:13
PROVIDERS: ATTEND Internal Medicine Cardiovascular Disease
DX: I10 Essential (primary) hypertension (principal)
CPT/HCPCS: 36415; 80053; 83735; 83880; 85025

== ENCOUNTER → 2024-02-08 | Outpatient (CLI) | payer OTHER | END | disposition home or self-care (01) | LOC: LAB 10:27 | PROVIDERS: ATTEND Internal Medicine Cardiovascular Disease | DX: I50.22 Chronic systolic (congestive) heart failure (principal); I95.9 Hypotension, unspecified | CPT/HCPCS: 36415; 83735; 83880 ==

== ENCOUNTER → 2024-05-08 | Outpatient (CLI) | payer OTHER ==
[2024-05-08 12:25] LABS: CREATININE 1.3 mg/dL (0.5-1.3); POTASSIUM 4.7 mmol/L (3.5-5.1)
== END | disposition home or self-care (01) ==
LOC: LAB 10:18
PROVIDERS: ATTEND Internal Medicine Cardiovascular Disease
DX: I50.22 Chronic systolic (congestive) heart failure (principal)
CPT/HCPCS: 36415; 80048; 83880